=== PATIENT | male | born 1960 | race Two or more races ===

== ENCOUNTER 2021-12-17 18:02 | Inpatient (IN) | payer OTHER ==
[~2021-12-17] VITALS: Ht 188 cm; Wt 95.3 kg
[2021-12-17 18:02] VITALS: BP_SYST 182
--- NOTE | 2021-12-17 18:02 | NUR ---
BROUGHT BACK TO BED 4 AND TRIAGED. REPORT GIVEN TO RUBEN
[2021-12-17] MEDS ORDERED: KETOROLAC TROMETHAMINE 30 MG VIAL IVP ONE (18:15)
[2021-12-17] MEDS ORDERED: NACL 0.9% 1,000 ML IV ONE (18:15)
[2021-12-17] MEDS ORDERED: KETOROLAC TROMETHAMINE 30 MG VIAL ONE (18:28)
--- NOTE | 2021-12-17 18:35 | NUR ---
URINE SAMPLE COLLECTED AND WALKED TO LAB
--- NOTE | 2021-12-17 18:35 | NUR ---
61YO M C/O RECURRENT LEFT FLANK PAIN X 1 MONTH, WORSENING YESTERDAY. PAIN 7/10, CRAMPING. DENIES INJURY OR TRAUMA TO AREA. DENIES DYSURIA OR HEMATURIA. DENIES FEVER, N/V/D. LAST TRAMADOL TAKEN 45 MINS AGO. PMH: KIDNEY STONES MEDS: NONE NKA
[2021-12-17 18:37] LABS: BASOPHILS # (AUTO) 0.1 K/uL (0.0-0.2); BASOPHILS % (AUTO) 0.6 % (0.0-2.0); EOSINOPHILS # (AUTO) 0.2 K/uL (0.0-0.4); EOSINOPHILS % (AUTO) 1.6 % (0.0-4.0); HEMATOCRIT 43.5 % (36-54); HEMOGLOBIN 15.2 g/dL (14.0-18.0); LYMPHOCYTES # (AUTO) 1.1 K/uL (1.0-5.5); LYMPHOCYTES % (AUTO) 11.3 % (20.5-51.5); MEAN CORPUSCULAR HEMOGLOBIN 30 pg (27-31); MEAN CORPUSCULAR HGB CONC 35 % (32-36); MEAN CORPUSCULAR VOLUME 86 fL (79.0-98.0); MONOCYTES # (AUTO) 0.8 K/uL (0.0-1.0); MONOCYTES % (AUTO) 8.4 % (1.7-9.3); NEUTROPHILS # (AUTO) 7.7 K/uL (1.8-7.7); NEUTROPHILS % (AUTO) 78.1 % (40.0-70.0); PLATELET COUNT (AUTO) 274 K/uL (130-430); RED BLOOD CELL COUNT(AUTO) 5.06 MIL/uL (4.2-6.2); RED CELL DISTRIBUTION WIDTH 13.1 % (9.0-15.0); WHITE BLOOD COUNT (AUTO) 9.9 K/uL (4.8-10.8)
[2021-12-17 18:39] LABS: BILIRUBIN,URINE NEGATIVE (NEGATIVE); BLOOD, URINE NEGATIVE (NEGATIVE); CLARITY/URINE CLEAR (CLEAR); COLOR,URINE YELLOW (YELLOW); GLUCOSE,URINE NEGATIVE (NEGATIVE); KETONES,URINE NEGATIVE (NEGATIVE); LEUKOCYTE ESTERASE ,URINE NEGATIVE (NEGATIVE); NITRITE, URINE NEGATIVE (NEGATIVE); PROTEIN URINE NEGATIVE (NEGATIVE)
[2021-12-17 18:46] LABS: CREATININE 1.7 mg/dL (0.55-1.30); POTASSIUM 3.9 mmol/L (3.5-5.1)
[2021-12-17 18:52] LABS: ALBUMIN 3.3 g/dL (3.4-4.8); TOTAL BILIRUBIN 0.3 mg/dL (0.0-1.0)
[2021-12-17] MEDS ORDERED: MORPHINE 4 MG INJ. 4 MG/ML VIAL IVP ONE (19:00)
[2021-12-17] MEDS ORDERED: MORPHINE 4 MG INJ. 4 MG/ML VIAL ONE (19:06)
--- NOTE | 2021-12-17 19:15 | NUR ---
report given to duyen ledezma. all cares transferred at this time.
--- NOTE | 2021-12-17 19:19 | NUR ---
REPORT RECIEVED FROM SUSHIL COX. PT WAS GIVEN MORPHINE FOR PAIN , NOTED TO HYPERVENTILATE AND FEEL ANXIETY. PT ENCOURAGED TO RELAX AND LIGHTS TURNED OFF TO PROVIDE COMFORT. PT SON AT THE BEDSIDE. MD MCFARLAND AT THE BEDSIDE. WILL MONITOR CLOSELY
--- NOTE | 2021-12-17 19:28 | NUR ---
PT REPORTS FEELING BETTER, WILL MONITOR NEEDED
--- NOTE | 2021-12-17 20:26 | NUR ---
Paged for admission: HCP/[facility] , s/w Dr. Yaritza Rosas is manager front
[2021-12-17] MEDS ORDERED: D5/0.45 NS 1,000 ML IV SCH (21:00)
[2021-12-17] MEDS ORDERED: KETOROLAC TROMETHAMINE 30 MG VIAL IVP PRN (21:00)
--- NOTE | 2021-12-17 21:04 | NUR ---
COVID sample sent to Lab 21:03.
--- NOTE | 2021-12-17 22:24 | NUR ---
Admit bed requested Patient will be admitted to care of Dr.A TA. Admitted to MED SURG unit. Diagnosis KIDNEY STONE Inpatient (Yes or No) YES Observation (Yes or No) NO Orientation concerns or request close to nursing station (Yes or No) NO Covid Status NEGATIVE On vent or bipap NO Isolation requirements NO Needs a sitter NO From Home (Yes or if No enter name of facility) YES Requires Dialysis (Yes or No) NO Med Rec Completed (Yes of No) YES
--- NOTE | 2021-12-17 23:18 | NUR ---
ADMISSION NOTE Received patient from ER via roshan, received report from ER/ RN. Patient admitted with diagnosis of Kidney stone. Patient oriented to hospital routine, call light, toileting and safety-patient verbalized understanding.
[2021-12-17 23:29] VITALS: BP_SYST 142
--- NOTE | 2021-12-17 23:36 | NUR ---
REPORT PROVIDED TO ZAYRA LING, ALL QUESTIONS ANSWERED
[2021-12-17 23:42] VITALS: BP_SYST 142
[2021-12-17 23:43] VITALS: BP_SYST 142
--- NOTE | 2021-12-18 00:06 | NUR ---
CONSULTATION CALLED FOR DR. ALFONZO PENDLETON IS PAY STATION ATTENDANT ORDER BY CELY ABDUL FOR CONSULT OF NEPHROLOGY SPOKE WITH THAI
--- NOTE | 2021-12-18 02:09 | NUR ---
2300 Pt. to room from ER, report received from SUSHIL Fox. Pt with no acute distress, denies pain. Oriented to room and made comfortable, call light in reach. Admit assess done, pt. resting quietly.
--- NOTE | 2021-12-18 06:20 | NUR ---
0600 Pt. needs met this shift, vss, slept well, no c/o pain, call light in reach
[2021-12-18 07:58] VITALS: BP_SYST 138
[2021-12-18 08:00] VITALS: BP_SYST 138
[2021-12-18] MEDS ORDERED: LORazepam 2 MG/ML VIAL IVP PRN (10:00)
[2021-12-18] MEDS ORDERED: ONDANSETRON HCL 4 MG/2 ML VIAL IVP PRN (10:00)
[2021-12-18] MEDS ORDERED: IBUP-1969 PO (10:16)
[2021-12-18] MEDS ORDERED: TAMS-11 PO (10:16)
--- NOTE | 2021-12-18 10:30 | NUR ---
CM: Informed and faxed the dc/HH order to mejia Kc at [facility] # [phone] opt [facility], stated she will contact Lacey and the dcp dept to call me back to update the HH arrangement.
[2021-12-18 12:00] VITALS: BP_SYST 133
[2021-12-18 12:04] VITALS: BP_SYST 120
--- NOTE | 2021-12-18 12:30 | NUR ---
Rec'd order to d/c pt by Dr Jones, reviewed d/c instructions with patient and family members at the bedside. D/c'd iv site, pt tolerated well. manager validation Cynthia at the bedside and spoke with pt. Charge nurse Griselda LING also aware of discharge. Ibruprofen and flomax prescription sent to pt's pharmacy per Dr Jones electronically and it was included in d/c instruction paper work. Pt verbalized understanding, all questions answered and addressed. Escorted out via wheelchair. and all belongings given to pt.
== END 2021-12-18 12:30 | disposition home health service (06) | DRG 694 ==
LOC: SED 18:02 → SMU 20:46
PROVIDERS: ADMIT Preventive Medicine Preventive Medicine/Occupational Environmental Medicine; ATTEND Preventive Medicine Preventive Medicine/Occupational Environmental Medicine
DX: N13.2 Hydronephrosis with renal and ureteral calculous obstruction (principal); K42.9 Umbilical hernia without obstruction or gangrene; K40.20 Bilateral inguinal hernia, without obstruction or gangrene, not specified as recurrent; E83.51 Hypocalcemia; E83.52 Hypercalcemia; Z20.822 Contact with and (suspected) exposure to COVID-19; E88.09 Other disorders of plasma-protein metabolism, not elsewhere classified; R73.9 Hyperglycemia, unspecified; Z87.442 Personal history of urinary calculi
CPT/HCPCS: 36415; 76376; 80053; 81003; 85025; 96361; 96374; 96375; 99285; J1885; J2270; J7030